=== PATIENT | female | born 1985 | race Caucasian/White ===

== ENCOUNTER 2016-11-05 08:46 | Emergency (ER) | payer OTHER ==
[2016-11-05] MEDS ORDERED: Pepcid 20 MG VIAL IV ONE ×2 (09:01→09:07)
[2016-11-05] MEDS ORDERED: MORPHINE SULFATE 2 MG INJ IV ONE (09:01)
[2016-11-05] MEDS ORDERED: Zofran 4 MG/2 ML VIAL IV ONE (09:01)
[2016-11-05] MEDS ORDERED: Carafate 1 GM PO ONE ×2 (09:01→09:08)
[2016-11-05] MEDS ORDERED: Lactated Ringers 1,000 ML IV ONE ×2 (09:03→09:08)
[2016-11-05] MEDS ORDERED: Zofran 4 MG/2 ML VIAL ONE (09:07)
[2016-11-05] MEDS ORDERED: MORPHINE SULFATE 2 MG INJ ONE (09:07)
--- NOTE | 2016-11-05 09:09 | ERPHSYRPT ---
- History of Present Illness Time Seen by Provider: 11/05/16 08:48 Historian: patient Exam Limitations: no limitations Patient Subjective Stated Complaint: pt co abd pain, cramping constant pain, loose stools for 3 days, couple months ago has had bloody mucus stools,no fever , no n/v Triage Nursing Assessment: pt alert, resp easy, skin w/d. pink,abd soft Physician History: abdominal pain (crampy - epig and LLQ mostly) x 2-3 days associateed with watery diarrhea; clear; no blood or melena; no travel; no fever or chills; no N& V; no bad food; on city wter; no exposures; family all ok; past hx of bloody mucoid stools in past- had colonoscopy- non- diagnostic; no blood mucous this time; Timing/Duration: day(s) (2-3), gradual onset, worse Activities at Onset: rest Quality: cramping Abdominal Pain Onset Location: LLQ (next worse), epigastric (greatest) Pain Radiation: no radiation Severity of Pain-Max: moderate (2/10) Severity of Pain-Current: moderate (2/10) Modifying Factors: Improves With: eating (make diarrhea worse but not the pain) Associated Symptoms: diarrhea Previous symptoms: different symptoms Allergies/Adverse Reactions: No Known Drug Allergies Allergy (Verified 11/05/16 08:59) Hx Tetanus, Diphtheria Vaccination/Date Given: No Hx Influenza Vaccination/Date Given: No Hx Pneumococcal Vaccination/Date Given: No Immunizations Up to Date: Yes - Review of Systems Constitutional: No Symptoms Eyes: No Symptoms Ears, Nose, & Throat: No Symptoms Respiratory: No Cough, No Dyspnea, No Wheezing Cardiac: No Chest Pain, No Palpitations, No Syncope Abdominal/Gastrointestinal: Abdominal Pain, Diarrhea (clear watery multiple times a day), No Nausea, No Vomiting, No Constipation, No Hematemesis, No Hematochezia, No Melena Genitourinary Symptoms: No Symptoms Musculoskeletal: No Symptoms Skin: No Symptoms Neurological: No Symptoms Psychological: No Symptoms Endocrine: No Symptoms Hematologic/Lymphatic: No Symptoms Immunological/Allergic: No Symptoms - Past Medical History Pertinent Past Medical History: Yes Neurological History: No Pertinent History ENT History: No Pertinent History Cardiac History: No Pertinent History Respiratory History: No Pertinent History Endocrine Medical History: No Pertinent History Musculoskeletal History: No Pertinent History GI Medical History: No Pertinent History History: No Pertinent History Psycho-Social History: Anxiety, Depression Female Reproductive Disorders: No Pertinent History Other Medical History: ADHD. blood clot right leg. - Past Surgical History Past Surgical History: Yes Neuro Surgical History: No Pertinent History Cardiac: No Pertinent History Respiratory: No Pertinent History Gastrointestinal: No Pertinent History Genitourinary: No Pertinent History Musculoskeletal: No Pertinent History Female Surgical History: No Pertinent History Other Surgical History: wisdom teeth pulled with sedation. epidural with delivery of first baby - Social History Smoking Status: Never smoker How long have you smoked: 7 yrs Exposure to second hand smoke: No Alcohol Use: Socially (rarely) Drug Use: none Patient Lives Alone: No - Female History Hx Last Menstrual Period: 3 weeks ago Hx Now: No (tubal ligation) - Nursing Vital Signs Nursing Vital Signs: Initial Vital Signs Temperature 97.5 F 11/05/16 08:48 Pulse Rate 117 H 11/05/16 08:48 Respiratory Rate 16 11/05/16 08:48 Blood Pressure 119/79 11/05/16 08:48 O2 Sat by Pulse Oximetry 99 11/05/16 08:48 Pain Scale Pain Intensity 0 - Physical Exam General Appearance: mild distress (pain 2/10), alert, thin Eye Exam: PERRL/EOMI, eyes nml inspection, No photophobia Ears, Nose, Throat Exam: normal ENT inspection, TMs normal, pharynx normal, moist mucous membranes (semi), No pharyngeal erythema Neck Exam: normal inspection, non-tender, supple, full range of motion, No meningismus, No JVD, No lymphadenopathy Respiratory Exam: normal breath sounds, lungs clear, airway intact, No chest tenderness, No respiratory distress, No crackles/rales, No rhonchi, No wheezing Cardiovascular Exam: regular rate/rhythm, normal heart sounds, normal peripheral pulses, tachycardia (120), capillary refill 2-3 sec, No murmur, No friction rub Gastrointestinal/Abdomen Exam: soft, tenderness (epig> LLQ>LUQ), No normal bowel sounds (present but hypoactive at time of the exam), No distention, No guarding, No rebound, No organomegaly Pelvic Exam: deferred Rectal Exam: normal exam, No hemorrhoids, No black stool, No blood Back Exam: normal inspection, No CVA tenderness Extremity Exam: normal inspection, normal range of motion, No pelvis stable, No khloe's sign, No pedal edema, No swelling, No tenderness Neurologic Exam: alert, oriented x 3, cooperative, kiln stoker II-XII nml as tested, normal mood/affect, nml cerebellar function, nml station & gait, sensation nml Skin Exam: normal color, warm, dry, No rash, No petechiae Lymphatic Exam: No adenopathy SpO2 Interpretation: normal SpO2: 99 Oxygen Delivery: Room Air - Course Nursing assessment & vital signs reviewed: Yes Ordered Tests: Active Orders 24 hr Category Date Time Status IV Insertion STAT Care 11/05/16 09:01 Active Re-Check Vital Signs STAT Care 11/05/16 09:01 Active AMYLASE Stat Lab 11/05/16 09:13 Completed CBC W DIFF Stat Lab 11/05/16 09:13 Completed CMP Stat Lab 11/05/16 09:13 Completed CULTURE,URINE Stat Lab 11/05/16 09:13 Received HCG,QUALITATIVE URINE Stat Lab 11/05/16 09:21 Completed LIPASE Stat Lab 11/05/16 09:13 Completed Occult Blood,Stool Other Stat Lab 11/05/16 09:21 Completed UA W/ MICROSCOPIC Stat Lab 11/05/16 09:13 Completed Medication Summary Discontinued Medications Generic Name Dose Route Start Last Admin Trade Name Freq PRN Reason Stop Dose Admin Diphenoxylate HCl/Atropine 2 tablet 11/05/16 10:01 11/05/16 10:28 Lomotil PO 11/05/16 10:02 2 tablet STAT ONE Administration Diphenoxylate HCl/Atropine Confirm 11/05/16 10:22 Lomotil Administered 11/05/16 10:23 Dose 1 tablet .ROUTE .STK-MED ONE Diphenoxylate HCl/Atropine Confirm 11/05/16 10:29 Lomotil Administered 11/05/16 10:30 Dose 1 tablet .ROUTE .STK-MED ONE Famotidine 20 mg 11/05/16 09:01 11/05/16 09:10 Pepcid 20 Mg Vial IV 11/05/16 09:02 20 mg STAT ONE Administration Famotidine Confirm 11/05/16 09:07 Pepcid 20 Mg Vial Administered 11/05/16 09:08 Dose 20 mg IV .STK-MED ONE Lactated Ringer's 1,000 mls @ 999 mls/hr 11/05/16 09:03 11/05/16 09:10 Lactated Ringers IV 11/05/16 10:03 999 mls/hr .Q1H1M ONE Administration Lactated Ringer's Confirm 11/05/16 09:08 Lactated Ringers Administered 11/05/16 09:09 Dose 1,000 mls @ ud IV .STK-MED ONE Ceftriaxone Sodium/Dextrose 1 g in 50 mls @ 100 mls/hr 11/05/16 09:57 10:00 Rocephin 1 Gm-D5w 50 Ml Bag IV 11/05/16 10:26 100 mls/hr STAT STA Administration Ceftriaxone Sodium/Dextrose Confirm 11/05/16 09:58 Rocephin 1 Gm-D5w 50 Ml Bag Administered 11/05/16 09:59 Dose 1 g in 50 mls @ ud IV .STK-MED ONE Morphine Sulfate 2 mg 11/05/16 09:01 11/05/16 09:16 Morphine Sulfate 2 Mg Inj IV 11/05/16 09:02 2 mg STAT ONE Administration Morphine Sulfate Confirm 11/05/16 09:07 Morphine Sulfate 2 Mg Inj Administered 11/05/16 09:08 Dose 2 mg .ROUTE .STK-MED ONE Ondansetron HCl 4 mg 11/05/16 09:01 11/05/16 09:12 Zofran 4 Mg/2 Ml Vial IV 11/05/16 09:02 4 mg STAT ONE Administration Ondansetron HCl Confirm 11/05/16 09:07 Zofran 4 Mg/2 Ml Vial Administered 11/05/16 09:08 Dose 4 mg .ROUTE .STK-MED ONE Potassium Bicarbonate 50 meq 11/05/16 10:25 11/05/16 10:27 K-Lyte 25 Meq PO 11/05/16 10:26 50 meq STAT ONE Administration Potassium Bicarbonate Confirm 11/05/16 10:26 K-Lyte 25 Meq Administered 11/05/16 10:27 Dose 50 meq .ROUTE .STK-MED ONE Potassium Chloride 40 meq 11/06/16 10:00 Potassium Chl 40 Meq/30 Ml Oral Solution PO 12/06/16 09:59 DAILY RADHA Sucralfate 1 g 11/05/16 09:01 11/05/16 09:09 Carafate 1 Gm PO 11/05/16 09:02 1 g STAT ONE Administration Sucralfate Confirm 11/05/16 09:08 Carafate 1 Gm Administered 11/05/16 09:09 Dose 1 g PO .STK-MED ONE Lab/Rad Data: Laboratory Result Diagrams 11/05/16 09:13 11/05/16 09:13 Laboratory Results 11/05/16 11/05/16 11/05/16 Range/Units 09:21 09:21 09:13 WBC (4.0-10.5) K/mm3 RBC (4.1-5.4) M/mm3 Hgb (12.0-16.0) gm/dl Hct (35-47) % MCV (78-100) fl MCH (26-32) pg MCHC (32-36) g/dl RDW (11.5-14.0) % Plt Count (150-450) K/mm3 MPV (6-9.5) fl Gran % (36.0-66.0) % Lymphocytes % (24.0-44.0) % Monocytes % (0.0-12.0) % Eosinophils % (0.00-5.0) % Basophils % (0.0-0.4) % Basophils # (0-0.4) Sodium (136-145) mEq/L Potassium (3.5-5.1) mEq/L Chloride (98-107) mEq/L Carbon Dioxide (21-32) mEq/L Anion Gap (5-15) MEQ/L BUN (9-20) mg/dL Creatinine (0.55-1.30) mg/dl Estimated GFR ML/MIN Glucose (70-110) MG/DL Calcium (8.5-10.1) mg/dL Total Bilirubin (0.2-1.0) mg/dL AST (15-37) U/L ALT (12-78) U/L Alkaline Phosphatase (46-116) U/L Serum Total Protein (6.4-8.2) gm/dL Albumin (3.4-5.0) g/dL Amylase (25-115) U/L Lipase (73-393) U/L Ur Collection Type CCMS Urine Color YELLOW (YELLOW) Urine Appearance CLOUDY (CLEAR) Urine pH 5.0 (5-6) Ur Specific [place] 1.025 (1.005-1.025) Urine Protein TRACE (Negative) Urine Ketones LARGE (NEGATIVE) Urine Blood 250 (0-5) Zhen/ul Urine Nitrite NEGATIVE (NEGATIVE) Urine Bilirubin NEGATIVE (NEGATIVE) Urine Urobilinogen NORMAL (0-1) mg/dL Ur Leukocyte Esterase 1+ (NEGATIVE) Urine Microscopic RBC 5-10 (0-2) /HPF Urine Microscopic WBC 5-10 (0-5) /HPF Ur Epithelial Cells MANY (FEW) /HPF Urine Bacteria MODERATE (NEGATIVE) /HPF Urine Mucus MODERATE (NEGATIVE) /HPF Urine Yeast RARE (NEGATIVE) /HPF Urine Glucose NEGATIVE (NEGATIVE) mg/dL Urine HCG, Qual NEGATIVE (Negative) Stool Occult Blood NEGATIVE (Negative) Specimen Received 11-05-16 0950 11/05/16 11/05/16 Range/Units 09:13 09:13 WBC 9.6 (4.0-10.5) K/mm3 RBC 4.48 (4.1-5.4) M/mm3 Hgb 13.7 (12.0-16.0) gm/dl Hct 40.5 (35-47) % MCV 90.4 (78-100) fl MCH 30.6 (26-32) pg MCHC 33.8 (32-36) g/dl RDW 12.2 (11.5-14.0) % Plt Count 225 (150-450) K/mm3 MPV 9.7 H (6-9.5) fl Gran % 70.0 H (36.0-66.0) % Lymphocytes % 22.3 L (24.0-44.0) % Monocytes % 7.0 (0.0-12.0) % Eosinophils % 0.6 (0.00-5.0) % Basophils % 0.1 (0.0-0.4) % Basophils # 0.01 (0-0.4) Sodium 140 (136-145) mEq/L Potassium 2.8 L* (3.5-5.1) mEq/L Chloride 103 (98-107) mEq/L Carbon Dioxide 27.0 (21-32) mEq/L Anion Gap 13.3 (5-15) MEQ/L BUN 12 (9-20) mg/dL Creatinine 0.70 (0.55-1.30) mg/dl Estimated GFR > 60 ML/MIN Glucose 131 H (70-110) MG/DL Calcium 8.9 (8.5-10.1) mg/dL Total Bilirubin 0.40 (0.2-1.0) mg/dL AST 11 L (15-37) U/L ALT 13 (12-78) U/L Alkaline Phosphatase 60 (46-116) U/L Serum Total Protein 7.1 (6.4-8.2) gm/dL Albumin 3.3 L (3.4-5.0) g/dL Amylase 47 (25-115) U/L Lipase 255 (73-393) U/L Ur Collection Type Urine Color (YELLOW) Urine Appearance (CLEAR) Urine pH (5-6) Ur Specific [place] (1.005-1.025) Urine Protein (Negative) Urine Ketones (NEGATIVE) Urine Blood (0-5) Zhen/ul Urine Nitrite (NEGATIVE) Urine Bilirubin (NEGATIVE) Urine Urobilinogen (0-1) mg/dL Ur Leukocyte Esterase (NEGATIVE) Urine Microscopic RBC (0-2) /HPF Urine Microscopic WBC (0-5) /HPF Ur Epithelial Cells (FEW) /HPF Urine Bacteria (NEGATIVE) /HPF Urine Mucus (NEGATIVE) /HPF Urine Yeast (NEGATIVE) /HPF Urine Glucose (NEGATIVE) mg/dL Urine HCG, Qual (Negative) Stool Occult Blood (Negative) Specimen Received reviewed - Progress Progress: improved (after meds and some IV fluids), re-examined (after meds) Progress Note: 11/05/16 09:11 discussed treatment plan and need for someone to give her a ride home; Will hydrate with IV fluids; give anti diarrhea meds and pain meds and monitor and recheck; stool neg for blood; will get labs 11/05/16 09:30 rechecked and pain has resolved with meds; feeling better after some IV fluids; labs pending; will monitor and recheck 11/05/16 09:55 not ; cbc ok; U/A shows dehydration , 1+ luek cloudy; large ket; 250 rbc ; 5-10 wbc and rbc; mod bacteria; other lab still pending; will treat UTI and recheck 11/05/16 10:00 rechecked and feelign much better after meds and IV fluids; reviewed results to date; will start ATBs for UTI and monitor and recheck; VS improved; will give lomotil as well 11/05/16 10:08 renal function ok; lytes ok excpet low K+ 2.8; will give PO plus K+ i LR IV fluids given; 11/05/16 10:45 rechecked and much improved; instructions given; VS improved Counseled pt/family regarding: lab results, diagnosis, need for follow-up - Departure Time of Disposition: 10:45 Departure Disposition: Home Clinical Impression: UTI (urinary tract infection), Diarrhea, Abdominal pain, Dehydration, Hypokalemia Condition: Stable Critical Care Time: No Referrals: SAMIA ADAMS [Primary Care Provider] - Instructions: Urinary Tract Infection (UTI), Abdominal Pain-Adult, Diarrhea and Traveler's Diarrhea -- Adult, Hypokalemia Additional Instructions: BRAT diet; yogurt; gatorade; avoid milk ; rest Follow-up with family doctor as directed. Call for appointment. Return if any problems. If you smoke please stop. Call or follow up with your family doctor for assistance if you need it to stop. Please wear your seatbelt when driving. Have a nice day. Thank you for allowing us to participate in your care today. :o) Dr Darren Mcdonough Prescriptions: Diphenoxylate HCl/Atropine [Lomotil Tablet] 1 each PO Q6-8HPRN PRN #10 tablet PRN Reason: Diarrhea Hydrocodone Bit/Acetaminophen [Vicodin 5-500 Tablet] 1 each PO Q6-8HPRN PRN #10 tablet PRN Reason: Pain Sulfamethoxazole/Trimethoprim [Bactrim 400-80 mg Tablet] 1 each PO BID #20 tablet
[2016-11-05 09:23] LABS: BASOPHIL % 0.1 % (0.0-0.4); Eosinophil % 0.6 % (0.00-5.0); Lymphocytes % 22.3 % (24.0-44.0); Mean Cell Volume 90.4 fl (78-100); Mean Corpuscular Hemoglobin 30.6 pg (26-32); Mean Platelet Volume 9.7 fl (6-9.5); Platelet Count 225 K/mm3 (150-450); Red Blood Count 4.48 M/mm3 (4.1-5.4); Red Cell Distribution Width 12.2 % (11.5-14.0); White Blood Count 9.6 K/mm3 (4.0-10.5)
[2016-11-05 09:44] LABS: ALBUMIN 3.3 g/dL (3.4-5.0); ALKALINE PHOSPHATASE 60 U/L (46-116); ANION GAP 13.3 MEQ/L (5-15); BLOOD UREA NITROGEN 12 mg/dL (9-20); CHLORIDE 103 mEq/L (98-107); Glucose 131 MG/DL (70-110); LIPASE 255 U/L (73-393); SGOT/AST 11 U/L (15-37); SODIUM 140 mEq/L (136-145); Total Protein 7.1 gm/dL (6.4-8.2)
[2016-11-05 09:51] LABS: Bilirubin NEGATIVE (NEGATIVE); Blood 250 Ery/ul (0-5); COMPLETE URINE MICROSCOPIC? YES; Collection Type CCMS; Glucose NEGATIVE (NEGATIVE); Leukocyte Esterase 1+ (NEGATIVE)
[2016-11-05 09:52] LABS: ADD URINE CULTURE? YES (NO); Bacteria MODERATE /HPF (NEGATIVE); Epithelial Cells MANY /HPF (FEW); Mucus MODERATE /HPF (NEGATIVE); Yeast RARE /HPF (NEGATIVE)
[2016-11-05] MEDS ORDERED: ROCEPHIN 1 Gm-D5w 50 ml Bag** 1 G/50 ML IVPB IV STA (09:57)
[2016-11-05] MEDS ORDERED: ROCEPHIN 1 Gm-D5w 50 ml Bag** 1 G/50 ML IVPB IV ONE (09:58)
[2016-11-05] MEDS ORDERED: Lomotil PO ONE (10:01)
[2016-11-05 10:02] LABS: SGPT/ALT 13 U/L (12-78)
[2016-11-05 10:04] LABS: Potassium 2.8 mEq/L (3.5-5.1)
[2016-11-05] MEDS ORDERED: Lomotil ONE ×2 (10:22→10:29)
[2016-11-05] MEDS ORDERED: K-LYTE 25 MEQ PO ONE (10:25)
[2016-11-05] MEDS ORDERED: K-LYTE 25 MEQ ONE (10:26)
[2016-11-05 10:34] VITALS: BP 102/71
[2016-11-05 11:11] VITALS: PULSE 70; O2SAT 98
[2016-11-06] MEDS ORDERED: POTASSIUM CHL 40 MEQ/30 ML ORAL SOLUTION PO SCH (10:00)
== END 2016-11-05 11:12 | disposition home or self-care (01) ==
LOC: ED 08:46
DX: N39.0 Urinary tract infection, site not specified (principal); R19.7 Diarrhea, unspecified; R10.9 Unspecified abdominal pain; E86.0 Dehydration; E87.6 Hypokalemia
CPT/HCPCS: 36000; 36415; 80053; 81000; 82150; 82272; 83690; 84703; 85025; 87077; 87086; 87186; 96360; 96365; 96374; 96375; 99284; J0696; J2270; J2405; A9270-GY

== ENCOUNTER 2016-11-19 05:57 | Day surgery (SDC) | payer OTHER ==
[2016-11-19] MEDS ORDERED: DIPRIVAN 200 MG/20 ML IV ONE (05:58)
[2016-11-19] MEDS ORDERED: Versed 2 MG/2 ML Injection IV ONE (05:58)
[2016-11-19] MEDS ORDERED: Lactated Ringers 1,000 ML IV SCH (06:00)
--- NOTE | 2016-11-19 08:04 | OP ---
SURGERY DATE: 11/19/16 SURGERY TIME: 730 PREOPERATIVE DIAGNOSIS: 1. ABDOMINAL PAIN AND CHANGE IN BOWEL HABITS. POSTOPERATIVE DIAGNOSIS: 1. NORMAL COLON. PROCEDURE: 1. Colonoscopy. SURGEON: Dr. Pacheco. ANESTHESIA: MAC. Medications given by the Anesthesia Department. BRIEF HISTORY: The patient is a 31 y/o WF presenting now for endoscopic evaluation. She reports she has been having problems with lower abdominal pain and with change in her bowel habits. The patient was felt to need to have endoscopic evaluation. She was appraised of the risks of the procedure including the risk of perforation, phlebitis, untoward reaction to medication, bleeding, and missed lesions. The patient verbalized her understanding and desired to have the procedure performed. DESCRIPTION OF PROCEDURE: The patient was given the medications by the Anesthesia Department. She had continuous pulse oximetry, ECG monitoring, intermittent BP monitoring, and end tidal CO2 monitoring. She was placed in the left lateral decubitus position. A digital rectal examination was performed and revealed normal anal sphincter tone and no masses. The flexible Olympus pediatric colonoscope was used to intubate the rectum. A view of the colon was developed sequentially to the cecum including a short distance into the terminal ileum. Upon insertion and withdrawal, including a retroflex view in the rectum, was noted to be a somewhat narrow and spasmotic sigmoid colon which was somewhat friable with the scope, but no mucosal lesions otherwise were noted. Specifically, no evidence of obvious colitis. There were no polyps noted either. The scope was removed from the patient who tolerated the procedure well and was sent back to OP recovery in good condition. The prep was noted to be fair to good.
[2016-11-19 08:34] VITALS: O2SAT 100
[2016-11-19 09:06] VITALS: BP 107/49; PULSE 89
== END 2016-11-19 09:05 | disposition home or self-care (01) ==
LOC: SDC 05:57
PROVIDERS: ATTEND Family Medicine
PROC: 0DJD8ZZ Inspection of Lower Intestinal Tract, Via Natural or Artificial Opening Endoscopic (ICD-10-PCS; principal; 2016-11-19)
DX: R10.9 Unspecified abdominal pain (principal); R19.4 Change in bowel habit
CPT/HCPCS: 00810; 84703; J2250; J2704